=== PATIENT | female | born 1995 | race Caucasian/White ===

== ENCOUNTER → 2021-03-16 | Outpatient (CLI) | payer BC, OTHER ==
[~2021-03-16] MED LIST: COLACE 100MG C100 MG PO; IBUPROFEN600 MG PO; LORTAB 5-325 M1 EACH PO; PRENATAL TABLE1 EAC1 PO; SYNTHROID88 MCG PO
== END ==
LOC: KOH-I 11:15 → EXRD 16:00
DX: E04.9 Nontoxic goiter, unspecified (principal)
CPT/HCPCS: 76536